=== PATIENT | female | born 1985 | race Caucasian/White ===

== ENCOUNTER 2019-03-16 22:29 | Emergency (ER) | payer OTHER ==
[2019-03-16 23:53] LABS: Protime INR 0.92
[2019-03-17 00:03] LABS: Absolute Lymphocytes (CBC) 2.5 K/uL (0.7-4.9); Basophils % 0.3 % (0-1.3); Hematocrit 30.3 % (36.0-45.0); Lymphocytes % 21.4 % (15.3-44.8); MPV 9.4 fL (7.6-11.3); RBC Red Blood Cell Count 3.38 M/uL (3.86-4.86)
[2019-03-17 00:09] LABS: ALT/SGPT 41 U/L (12-78); AST/SGOT 35 U/L (15-37); Albumin 2.4 g/dL (3.4-5.0); Alkaline Phosphatase 93 U/L (45-117); BUN Blood Urea Nitrogen 13 mg/dL (7-18); Bicarbonate 25 mmol/L (21-32); Bilirubin Direct 0.1 mg/dL (0-0.2); Bilirubin Total 0.2 mg/dL (0.2-1.0); Glucose Level 101 mg/dL (74-106); Magnesium 2.1 mg/dL (1.8-2.4); NT PRO-BNP 190 pg/mL (<125); Potassium 3.9 mmol/L (3.5-5.1); Protein, Total 6.2 g/dL (6.4-8.2); Sodium Level 143 mmol/L (136-145); Troponin (Emerg Dept Use Only) < 0.02 ng/mL (0.0-0.045)
[2019-03-17 00:35] LABS: Urine Bacteria <20 /HPF (<20); Urine Culture Reflex Order REFLEXED; Urine RBC 20-50 /HPF (NONE SEEN)
[2019-03-17 00:37] LABS: Urine Blood 3+ (NEG); Urine Glucose NEGATIVE (NEG); Urine Protein NEGATIVE (NEG); Urine pH 6.5 (5.0-7.0)
--- NOTE | 2019-03-17 03:51 | EDPHYS ---
Physician Documentation [facility] Name: Casisa Knox Age: 33 yrs Sex: Female : 1985 Arrival Date: 03/16/2019 Time: 22:33 Bed 19 Private MD: ED Physician Robin Hood HPI: 03/17 08:16 This 33 yrs old Female presents to ER via Ambulatory with complaints of Chest wa Pain, Breathing Difficulty. 08:16 The patient or guardian reports chest pain that is located primarily in the substernal wa area. The pain does not radiate. Associated signs and symptoms: Pertinent positives: shortness of breath, Pertinent negatives: abdominal pain, cough, dizziness, headache. The chest pain is described as tightness. Duration: The patient or guardian reports a single episode, that is still ongoing. Modifying factors: The symptoms are alleviated by nothing. the symptoms are aggravated by nothing. Severity of pain: At its worst the pain was mild in the emergency department the pain is unchanged. The patient has not experienced similar symptoms in the past. The patient has not recently seen a physician. h/o 2 weeks early for elevated BP. denies pre-eclampsia. states procedure performed to preempt eclampsia. denies LE swelling or edema. 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 - Social history:: Smoking status: Patient/guardian denies using tobacco, the patient reports quitting approximately 1 years ago. - Ebola Screening: : Patient negative for fever greater than or equal to 101.5 degrees Fahrenheit, and additional compatible Ebola Virus Disease symptoms. - Family history:: not pertinent. - Hospitalizations: : recent peripartum s/p . ROS: 03/17 08:20 Constitutional: Negative for fever, chills, and weight loss, Eyes: Negative for injury, wa pain, redness, and discharge, ENT: Negative for injury, pain, and discharge, Neck: Negative for injury, pain, and swelling, Abdomen/GI: Negative for abdominal pain, nausea, vomiting, diarrhea, and constipation, Back: Negative for injury and pain, : Negative for injury, bleeding, discharge, and swelling, MS/Extremity: Negative for injury and deformity, Skin: Negative for injury, rash, and discoloration, Neuro: Negative for headache, weakness, numbness, tingling, and seizure, Psych: Negative for depression, anxiety, suicide ideation, homicidal ideation, and hallucinations. Cardiovascular: Positive for chest pain, Negative for edema, orthopnea, palpitations. Respiratory: Positive for shortness of breath, at rest. Negative for cough, sputum production. All other systems are negative. Exam: 08:21 Constitutional: This is a well developed, well nourished patient who is awake, alert, wa and in no acute distress. Head/Face: Normocephalic, atraumatic. Eyes: Pupils equal round and reactive to light, extra-ocular motions intact. Lids and lashes normal. Conjunctiva and sclera are non-icteric and not injected. Cornea within normal limits. Periorbital areas with no swelling, redness, or edema. ENT: Nares patent. No nasal discharge, no septal abnormalities noted. Tympanic membranes are normal and external auditory canals are clear. Oropharynx with no redness, swelling, or masses, exudates, or evidence of obstruction, uvula midline. Mucous membranes moist. Neck: Trachea midline, no thyromegaly or masses palpated, and no cervical lymphadenopathy. Supple, full range of motion without nuchal rigidity, or vertebral point tenderness. No Meningismus. Chest/axilla: Normal chest wall appearance and motion. Nontender with no deformity. No lesions are appreciated. Cardiovascular: Regular rate and rhythm with a normal S1 and S2. No gallops, murmurs, or rubs. Normal PMI, no JVD. No pulse deficits. Respiratory: Lungs have equal breath sounds bilaterally, clear to auscultation and percussion. No rales, rhonchi or wheezes noted. No increased work of breathing, no retractions or nasal flaring. Abdomen/GI: Soft, non-tender, with normal bowel sounds. No distension or tympany. No guarding or rebound. No evidence of tenderness throughout. Back: No spinal tenderness. No costovertebral tenderness. Full range of motion. Skin: Warm, dry with normal turgor. Normal color with no rashes, no lesions, and no evidence of cellulitis. MS/ Extremity: Pulses equal, no cyanosis. Neurovascular intact. Full, normal range of motion. Neuro: Awake and alert, GCS 15, oriented to person, place, time, and situation. Cranial nerves II-XII grossly intact. Motor strength 5/5 in all extremities. Sensory grossly intact. Cerebellar exam normal. Normal gait. Psych: Awake, alert, with orientation to person, place and time. Behavior, mood, and affect are within normal limits. Vital Signs: 03/16 22:49 BP 144 / 90; Pulse 118; Resp 18 S; Temp 98.5(O); Pulse Ox 98% on R/A; Weight 90.72 kg jd3 (R); Height 5 ft. 6 in. (167.64 cm) (R); Pain 0/10; 23:28 BP 124 / 65; Pulse 97; Resp 15 S; Pulse Ox 100% on R/A; d3 03/17 00:21 BP 126 / 91; Pulse 93; Resp 17 S; Pulse Ox 100% on R/A; Pain 0/10; jd3 01:22 BP 142 / 86; Pulse 100; Resp 15 S; Pulse Ox 98% on R/A; jd3 02:38 BP 131 / 75; Pulse 96; Resp 16 S; Pulse Ox 100% on 2 lpm NC; jd3 03:51 BP 130 / 80; Pulse 78; Resp 17 S; Pulse Ox 100% on R/A; jd3 03/16 22:49 Body Mass Index 32.28 (90.72 kg, 167.64 cm) [facility] MDM: 03/16 22:41 Patient medically screened. ca 03/17 08:21 Differential diagnosis: acute myocardial infarction, acute pericarditis, anxiety, wa coronary artery disease congestive heart failure pericarditis, pleurisy, pneumonia, pneumothorax, pulmonary embolus, stable angina, thoracic aortic disection, r/o pre-eclampsia. r/o post- cardiomyopathy. Data reviewed: vital signs, nurses notes. Test interpretation: by ED physician or midlevel provider: EKG: interp by ny. HR 78. nml axis. no acute abnml. essentially nml study. 08:22 Test interpretation: by ED physician or midlevel provider: labs noted within nml wa limits. CXR and CT chest noted negative. ED course: reassessed: pt states feels much better. noted breast-feeding her child in room. advised close f/u and to return if worsening. negative work up. 03/16 23:05 Order name: Basic Metabolic Panel; Complete Time: 01:08 ca 03/16 23:05 Order name: CBC with Diff; Complete Time: 01:08 ca 03/16 23:05 Order name: LFT's; Complete Time: 01:08 ca 03/16 23:05 Order name: Magnesium; Complete Time: 01: ca 03/16 23:05 Order name: NT PRO-BNP; Complete Time: 01:08 ca 03/16 23:05 Order name: PT-INR; Complete Time: : ca 03/16 23:05 Order name: Troponin (emerg Dept Use Only); Complete Time: 01:08 ca 03/16 23:05 Order name: XRAY Chest (1 view) ca 03/16 23:05 Order name: EKG; Complete Time: 23:06 ca 03/16 23:05 Order name: Cardiac monitoring; Complete Time: 23:14 ca 03/16 23:05 Order name: Urine Microscopic Only; Complete Time: 01:08 ca 03/16 23:56 Order name: Urine Dipstick--Ancillary (enter results); Complete Time: 01:08 ar5 03/17 00:49 Order name: Urine Culture [facility] 03/17 01:16 Order name: CT Chest For PE Angio ca 03/16 23:05 Order name: EKG - Nurse/Tech; Complete Time: 23:14 ca 03/16 23:05 Order name: IV Saline Lock; Complete Time: 23:26 ca 03/16 23:05 Order name: Labs collected and sent; Complete Time: 23:26 ca 03/16 23:05 Order name: O2 Per Protocol; Complete Time: 23:16 ca 03/16 23:05 Order name: O2 Sat Monitoring; Complete Time: 23:16 ca 03/16 23:05 Order name: Urine Dipstick-Ancillary (obtain specimen); Complete Time: 23:57 ca Administered Medications: No medications were administered Disposition: 03/17/19 03:50 Discharged to Home. Impression: shortness of breath. - Condition is Stable. - Discharge Instructions: Shortness of Breath, [id number]. - Medication Reconciliation Form, Thank You Letter, Antibiotic Education, Prescription Opioid Use form. - Follow up: Mt Oglesby MD; When: 1 - 2 days; Reason: Recheck today's complaints, Re-evaluation by your physician. - Problem is new. - Symptoms have improved. - Notes: follow up with the lung doctor as discussed. return here for rapidly worsening problems with breathing Signatures: Dispatcher [employer] EDMS Robin Hood MD MD wa Davies, Jonathon, RN RN jd3 Corrections: (The following items were deleted from the chart) 04:01 03:50 03/17/2019 03:50 Discharged to Home. Impression: shortness of breath. Condition jd3 is Stable. Forms are Medication Reconciliation Form, Thank You Letter, Antibiotic Education, Prescription Opioid Use. Follow up: Mt Oglesby; When: 1 - 2 days; Reason: Recheck today's complaints, Re-evaluation by your physician. Problem is new. Symptoms have improved. sabrina
--- NOTE | 2019-03-17 03:51 | ER ---
Nurse's Notes [facility] Name: Cassia Knox Age: 33 yrs Sex: Female : 1985 Arrival Date: 03/16/2019 Time: 22:33 Bed 19 [facility] MD: Diagnosis: shortness of breath Presentation: 03/16 22:47 Presenting complaint: Patient states: "I have been having chest pressure since last jd3 night. No pain just tightness. I also had a on Monday.". Transition of care: patient was not received from another setting of care. Onset of symptoms was March 16, 2019. Risk Assessment: Do you want to hurt yourself or someone else? Patient reports no desire to harm self or others. Initial Sepsis Screen: Does the patient meet any 2 criteria? No. Patient's initial sepsis screen is negative. Does the patient have a suspected source of infection? No. Patient's initial sepsis screen is negative. Care prior to arrival: None. 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 - Social history:: Smoking status: Patient/guardian denies using tobacco, the patient reports quitting approximately 1 years ago. - Ebola Screening: : Patient negative for fever greater than or equal to 101.5 degrees Fahrenheit, and additional compatible Ebola Virus Disease symptoms. - Family history:: not pertinent. - Hospitalizations: : recent peripartum s/p . Screenin:53 Abuse screen: Denies threats or abuse. Nutritional screening: No deficits noted. jd3 Tuberculosis screening: No symptoms or risk factors identified. Fall Risk Ambulatory Aid- None/Bed Rest/Nurse Assist (0 pts). Gait- Normal/Bed Rest/Wheelchair (0 pts) Mental Status- Oriented to own ability (0 pts). Total Gates Fall Scale indicates No Risk (0-24 pts). Assessment: 22:51 General: Appears in no apparent distress. uncomfortable, Behavior is calm, cooperative, jd3 appropriate for age. Pain: Denies pain. Pain does not radiate. Pain began 1 day ago. Neuro: Level of Consciousness is awake, alert, obeys commands, Oriented to person, place, time, situation. Cardiovascular: Reports chest pressure Heart tones S1 S2 present Capillary refill < 3 seconds Patient's skin is warm and dry. Rhythm is sinus tachycardia. Respiratory: Airway is patent Respiratory effort is even, unlabored, Respiratory pattern is regular, symmetrical, Breath sounds with wheezes bilaterally. GI: No signs and/or symptoms were reported involving the gastrointestinal system. : No signs and/or symptoms were reported regarding the genitourinary system. EENT: No signs and/or symptoms were reported regarding the EENT system. Derm: Skin is intact, Skin is dry, Skin is normal, Skin temperature is warm. Musculoskeletal: Circulation, motion, and sensation intact. Range of motion: intact in all extremities. 23:28 Reassessment: Patient appears in no apparent distress at this time. No changes from jd3 previously documented assessment. Patient and/or family updated on plan of care and expected duration. Pain level reassessed. Patient is alert, oriented x 3, equal unlabored respirations, skin warm/dry/pink. 03/17 00:20 Reassessment: Patient appears in no apparent distress at this time. Patient and/or jd3 family updated on plan of care and expected duration. Pain level reassessed. Patient is alert, oriented x 3, equal unlabored respirations, skin warm/dry/pink. awaiting disposition. Patient states feeling better. 01:23 Reassessment: Patient appears in no apparent distress at this time. Patient and/or jd3 family updated on plan of care and expected duration. Pain level reassessed. Patient is alert, oriented x 3, equal unlabored respirations, skin warm/dry/pink. awaiting disposition. Patient states feeling better. 02:41 Reassessment: Patient appears in no apparent distress at this time. Patient and/or jd3 family updated on plan of care and expected duration. Pain level reassessed. Patient is alert, oriented x 3, equal unlabored respirations, skin warm/dry/pink. awaiting EMS for transfer. 03:51 Reassessment: Patient appears in no apparent distress at this time. Patient and/or jd3 family updated on plan of care and expected duration. Pain level reassessed. Patient is alert, oriented x 3, equal unlabored respirations, skin warm/dry/pink. Patient states feeling better. Vital Signs: 03/16 22:49 BP 144 / 90; Pulse 118; Resp 18 S; Temp 98.5(O); Pulse Ox 98% on R/A; Weight 90.72 kg jd3 (R); Height 5 ft. 6 in. (167.64 cm) (R); Pain 0/10; 23:28 BP 124 / 65; Pulse 97; Resp 15 S; Pulse Ox 100% on R/A; jd3 03/17 00:21 BP 126 / 91; Pulse 93; Resp 17 S; Pulse Ox 100% on R/A; Pain 0/10; jd3 01:22 BP 142 / 86; Pulse 100; Resp 15 S; Pulse Ox 98% on R/A; jd3 02:38 BP 131 / 75; Pulse 96; Resp 16 S; Pulse Ox 100% on 2 lpm NC; jd3 03:51 BP 130 / 80; Pulse 78; Resp 17 S; Pulse Ox 100% on R/A; jd3 03/16 22:49 Body Mass Index 32.28 (90.72 kg, 167.64 cm) jd3 ED Course: 03/16 22:33 Patient arrived in ED. ds1 22:41 Robin Hood MD is Attending Physician. wa 22:47 Cornelio Araiza, SHAHEEN is Primary Nurse. jd3 22:48 Triage completed. jd3 22:51 Arm band placed on. EKG completed in triage. Results shown to MD. jd3 22:53 Patient has correct armband on for positive identification. Placed in gown. Bed in low jd3 position. Call light in reach. Side rails up X 1. Adult w/ patient. radiation monitor on. Pulse ox on. NIBP on. 22:53 Patient maintains SpO2 saturation greater than 95% on room air. jd3 23:25 Inserted saline lock: 22 gauge in right hand, using aseptic technique. Blood collected. oe 03/17 00:36 XRAY Chest (1 view) In Process Unspecified. EDMS 01:55 Inserted saline lock: 20 gauge in left antecubital area, using aseptic technique. jd3 placed for CT scan with contrast. 02:21 CT Chest For PE Angio In Process Unspecified. EDMS 03:50 Mt Oglesby MD is Referral Physician. wa 04:00 No provider procedures requiring assistance completed. IV discontinued, intact, jd3 bleeding controlled, No redness/swelling at site. Pressure dressing applied. Administered Medications: No medications were administered Outcome: 03:50 Discharge ordered by . wa 04:00 Discharged to home ambulatory, with family. jd3 04:00 Condition: stable 04:00 Discharge instructions given to patient, family, Instructed on discharge instructions, follow up and referral plans. Demonstrated understanding of instructions, follow-up care. 04:01 Patient left the ED. jd3 Signatures: Dispatcher [employer] EDVT Neela Argueta ds1 Sang Guallpa William, MD MD wa Davies, Jonathon RN RN jd3 Corrections: (The following items were deleted from the chart) 00:21 00:20 Reassessment: Patient appears in no apparent distress at this time. Patient jd3 and/or family updated on plan of care and expected duration. Pain level reassessed. Patient is alert, oriented x 3, equal unlabored respirations, skin warm/dry/pink. awaiting disposition. jd3
[2019-03-17 04:28] VITALS: TEMP 98.5
[2019-03-17 04:33] VITALS: O2SAT 100
[2019-03-17 04:34] VITALS: BP 130/80
--- NOTE | 2019-03-17 08:55 | RAD REPORT ---
EXAM DESCRIPTION: RAD - Chest Single View - 03/17/2019 12:26 am CLINICAL HISTORY: Chest pain and pressure COMPARISON: None. TECHNIQUE: AP portable chest image was obtained 2317 hours . FINDINGS: Lungs are clear. Heart and vasculature are normal. No measurable pleural effusion and no p neumothorax. No acute bony abnormality seen. No acute aortic findings suspected. IMPRESSION: No acute cardiopulmonary process.
--- NOTE | 2019-03-17 13:18 | EKG ---
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
--- NOTE | 2019-03-18 10:59 | RAD REPORT ---
EXAM DESCRIPTION: CT - Chest For Pe Angio - 03/17/2019 3:38 am CLINICAL HISTORY: CP, SOB, peripartum COMPARISON: None. TECHNIQUE: CT CHEST ANGIOGRAPHY WITH IV CONTRAST on 03/17/2019 1:16 AM CDT. MIPS reconstructions were generated. This exam was performed according to our departmental dose-optimization program, which includes autom ated exposure control, adjustment of the mA and/or kV according to patient size and/or use of iterati ve reconstruction technique. MIP images were generated. FINDINGS: Thoracic aorta is normal in course and caliber without aneurysm or dissection. Pulmonary a rteries are adequately opacified without acute or chronic filling defects. The heart is normal in size. There is no pericardial effusion. Intrathoracic lymph nodes are not enla rged. There is no pleural effusion, pleural thickening or pneumothorax. Central airways are patent. Lungs a re clear with no consolidation, mass or interstitial lung disease. There are no acute abnormalities within the limited images of the upper abdomen. There are no acute osseous findings. No suspicious bony lesions. IMPRESSION: No aortic dissection or aneurysm. No pulmonary embolus. No pneumonia Electronically signed by: Ramez Varma MD 03/17/2019 3:33 AM CDT Due to temporary technical issues with the PACS/Fluency reporting system, reports are being signed by the in house radiologist as a courtesy to ensure prompt reporting. The interpreting radiologist is f ully responsible for the content of the report.
== END 2019-03-17 04:01 | disposition home or self-care (01) ==
LOC: ER 22:29
DX: R06.02 Shortness of breath (principal)
CPT/HCPCS: 93005; 87088; 85025; 87086; 80048; 36415; 83735; 85610; 80076; 84484; 83880; 71275; 71045; 99285; Q9967; 81003; 81015